=== PATIENT | female | born 1985 | race Caucasian/White ===

== ENCOUNTER 2019-02-19 09:16 | Outpatient (CLI) | payer OTHER ==
--- NOTE | 2019-02-19 10:06 | MMO ---
Bilateral MAMMO Bilat Diag [id number]. CLINICAL HISTORY: Patient is 33 years old and is seen for diagnostic exam and palpable abnormality in both breasts. The patient has no family history of breast cancer. The patient has no personal history of cancer. The patient has a history of Implants in 2006. VIEWS: The views performed were: bilateral craniocaudal with tomosynthesis; bilateral mediolateral oblique with tomosynthesis; bilateral mediolateral with tomosynthesis; and bilateral Implant displaced with tomosynthesis. FILMS COMPARED: The present examination has been compared to a prior imaging study performed at [facility] on 02/19/2019. This study has been interpreted with the assistance of computer-aided detection. MAMMOGRAM FINDINGS: The breasts are heterogeneously dense, which could obscure a lesion on mammography. There are no suspicious masses, suspicious calcifications, or areas of architectural distortion. There are no mammographic or sonographic abnormalities in the area of palpable concern. The patient is referred back to her clinician. Negative imaging findings should not preclude biopsy if clinical findings are suspicious. IMPRESSION: THERE IS NO MAMMOGRAPHIC EVIDENCE OF MALIGNANCY. 3BTHE RESULTS OF THIS EXAM WERE SENT TO THE PATIENT.0B ACR BI-RADS Category 1 - Negative MAMMOGRAPHY NOTE: 1. A negative mammogram report should not delay a biopsy if a dominant of clinically suspicious mass is present. 2. Approximately 10% to 15% of breast cancers are not detected by mammography. 3. Adenosis and dense breasts may obscure an underlying neoplasm. Reported by: CECI HARRIS MD Electonically Signed: [id number]
--- NOTE | 2019-02-19 10:44 | ULT ---
LIMITED RIGHT BREAST ULTRASOUND: DATE: 02/19/2019. PROVIDED CLINICAL HISTORY: Right breast palpable abnormality. FINDINGS: Limited sonographic interrogation of the right breast was performed in the region of palpable concern . The sonographic appearance of the breast parenchyma in this region is normal. IMPRESSION: BIRADS category 1 - negative. Negative imaging findings should not preclude further evaluation of a clinically suspicious area. The patient is referred back to her clinician. POS: OFF
--- NOTE | 2019-02-19 10:59 | ULT ---
LIMITED LEFT BREAST ULTRASOUND: DATE: 02/19/2019. PROVIDED CLINICAL HISTORY: Left breast palpable abnormality. FINDINGS: Limited sonographic interrogation was performed of the left breast in the region of palpable concern. The sonographic appearance of the breast tissue in this region appears normal. Focal altered echog enicity involving the breast implant approximates the region of palpable concern, probably representi ng the implant valve. IMPRESSION: BIRADS category 1 - negative. Negative imaging findings should not preclude further evaluation of a clinically suspicious area. The patient is referred back to her clinician. POS: OFF
== END 2019-02-19 09:17 | disposition home or self-care (01) ==
LOC: BICMAMMO 09:16
PROVIDERS: ATTEND Obstetrics & Gynecology
DX: N63.10 Unspecified lump in the right breast, unspecified quadrant (principal)
CPT/HCPCS: 77066; G0279

== ENCOUNTER 2020-02-08 13:46 | Day surgery (SDC) | payer OTHER | END 2020-02-08 14:45 | disposition home or self-care (01) | LOC: L&D/OP 13:46 | PROVIDERS: ATTEND Obstetrics & Gynecology | DX: O47.9 False labor, unspecified (principal); Z3A.00 Weeks of gestation of pregnancy not specified ==